=== PATIENT | male | born 1950 | race Caucasian/White ===

== ENCOUNTER 2017-03-06 08:38 | Day surgery (SDC) | payer OTHER ==
[~2017-03-06] VITALS: Ht 172.7 cm; Wt 91.2 kg
[~2017-03-06 08:38] MED LIST: AMLODIPINE BESYL5 MG PO; ATENOLOL50 MG PO; HYDROCODON-ACE1 EA10 PO; JANUVIA100 MG PO; LANTUS100 UNITS/ SUB-Q; LEVOTHYROXINE112 MCG PO; LISINOPRIL40 MG PO; METFORMIN HCL750 MG PO
[2017-03-06] MEDS ORDERED: JARDIANCE10 MG PO (08:57)
--- NOTE | 2017-03-06 10:27 | NUR ---
[facility]17 [facility] T[facility]. PT DENIES ANY PROBLEMS.
--- NOTE | 2017-03-06 16:04 | OR ---
[facility] [address] [place], [place] [address] Signed DATE OF PROCEDURE: 03/06/17 PREOPERATIVE DIAGNOSES Internal hemorrhoids (2010). Rectal bleeding. POSTOPERATIVE DIAGNOSES Moderate circumferential internal hemorrhoids. Minimal sigmoid diverticulosis. PROCEDURE: Colonoscopy without biopsy. ESTIMATED BLOOD LOSS: None. INDICATIONS Kobe is a 66-year-old gentleman who came in 2010 for screening colonoscopy. At that time, he had internal hemorrhoids. More recently, he has had quite a bit of rectal bleeding he said he notices in the toilet on the stool and his toilet paper. He said he is not sure why. He said he has not changed any of his medications or his diet. There is no family history of colon cancer or polyps. Consequently, his primary care provider asked him to see me for repeat colonoscopy. I gave Kobe a pamphlet on colonoscopy in the office and we reviewed that together. He understands there is risk including but not limited to gas bloating, crampy abdominal pain, bleeding perforation requiring surgery, and missed diagnosis. He also understands the need for IV conscious sedation. He had expressed understanding and wished to proceed. PROCEDURE IN DETAIL Kobe was taken into our endoscopy suite and placed in the left lateral decubitus position. He was given IV sedation with 8 mg of Versed and 175 mcg of Fentanyl. A digital rectal exam was performed and this was unremarkable. The adult colonoscope was introduced and advanced all around to the cecum under direct visualization of the camera without difficulty. The scope was slowly withdrawn. His prep was average. He had a couple areas of liquid stool that I could not quite irrigate and suctioned out completely. We saw just a few diverticula in the sigmoid colon. They were moderate in size, minimal in number, and scattered about. The rectum was unremarkable. Upon retroflexion of the scope, he does have a circumferential area of internal hemorrhoid tissue, currently not bleeding or irritated that I can see. After this, the gas was suctioned out and the colonoscope removed. Kobe tolerated the procedure quite well. RECOMMENDATIONS I can see Kobe back in my office in 10 years for repeat colonoscopy. If the rectal bleeding remains an issue, he can come back to the office sooner and we can look at that Electronically Signed By: QAMAR VELÁZQUEZ MD 03/06/17 1604 PATIENT NAME: EARL MAGALLANES OPERATIVE REPORT DATE OF : 54 PHYSICIAN: QAMAR VELÁZQUEZ MD REPORT #: [id number] REPORT IS CONFIDENTIAL AND NOT TO BE RELEASED WITHOUT AUTHORIZATION [facility] [address] [place] [id number] Signed together with respect to the internal hemorrhoids. Given his circumferential nature of hemorrhoids, he would be a better candidate for PPH stapler rather than banding. MD SINDY Pierce/Modl /[id number] cc: Danilo Pritchett MD Electronically Signed By: QAMAR VELÁZQUEZ MD 03/06/17 1604 PATIENT NAME: EARL MAGALLANES OPERATIVE REPORT DATE OF : 54 PHYSICIAN: QAMAR VELÁZQUEZ MD REPORT #: [id number] REPORT IS CONFIDENTIAL AND NOT TO BE RELEASED WITHOUT AUTHORIZATION
== END 2017-03-06 10:53 | disposition home or self-care (01) ==
LOC: OPS 08:38 → DS 08:38 → OPS 09:45
PROVIDERS: Colon & Rectal Surgery
PROC: 0DJD8ZZ Inspection of Lower Intestinal Tract, Via Natural or Artificial Opening Endoscopic (ICD-10-PCS; principal; 2017-03-06 09:45)
DX: K64.8 Other hemorrhoids (principal); K57.30 Diverticulosis of large intestine without perforation or abscess without bleeding; I10 Essential (primary) hypertension; E78.5 Hyperlipidemia, unspecified; E03.9 Hypothyroidism, unspecified; E11.9 Type 2 diabetes mellitus without complications; F17.210 Nicotine dependence, cigarettes, uncomplicated; Z98.890 Other specified postprocedural states; Z88.5 Allergy status to narcotic agent; Z88.8 Allergy status to other drugs, medicaments and biological substances
CPT/HCPCS: 99152; 99153; J2250; J3010; J7120

== ENCOUNTER 2020-08-11 17:45 | Emergency (ER) | payer MEDICARE, OTHER ==
[~2020-08-11] VITALS: Ht 172.7 cm; Wt 79.4 kg
[~2020-08-11 17:45] MED LIST changes: +JARDIANCE10 MG PO
--- OUTSIDE RECORDS SUMMARY | 2020-08-11 17:48 | XMS ---
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 Stuart has no Care Guidelines for this patient. Vinnie VISIT COUNT (12 MO.) 1 KAIA Reinoso TOTAL 1 NOTE: Visits indicate total known visits. ED/UCC VISIT TRACKING (12 MO.) 08/11/2020 17:45 KAIA Tinsley OR TYPE: Emergency COMPLAINT: - BLOOD IN URINE INPATIENT VISIT TRACKING (12 MO.) No inpatient visits to display in this time frame [email or web address]
[2020-08-11] MEDS ORDERED: LOSARTAN POTASS50 MG PO (18:11)
[2020-08-11] MEDS ORDERED: TRIAMTERENE-HC1 EAC1 PO (18:11)
[2020-08-11] MEDS ORDERED: ASPIRIN325 MG PO (18:12)
[2020-08-11] MEDS ORDERED: MULTI-VITAMIN1 EACH PO (18:12)
[2020-08-11] MEDS ORDERED: FISH OIL 1,4001 EACH PO (18:13)
[2020-08-11] MEDS ORDERED: VITAMIN C1000 MG PO (18:13)
[2020-08-11] MEDS ORDERED: TRULICITY1.5 MG/0.5 SUB-Q (18:14)
== END 2020-08-11 21:54 | disposition home or self-care (01) ==
LOC: ED 17:45
PROC: 4A0D7LZ Measurement of Urinary Volume, Via Natural or Artificial Opening (ICD-10-PCS; principal; 2020-08-11)
DX: R31.0 Gross hematuria (principal); E11.9 Type 2 diabetes mellitus without complications; I10 Essential (primary) hypertension; E78.00 Pure hypercholesterolemia, unspecified; Z87.891 Personal history of nicotine dependence; Z88.8 Allergy status to other drugs, medicaments and biological substances; Z88.5 Allergy status to narcotic agent; Z79.899 Other long term (current) drug therapy; Z79.84 Long term (current) use of oral hypoglycemic drugs; Z79.82 Long term (current) use of aspirin
CPT/HCPCS: 51798; 74177; 80048; 81001; 85025; 85610; 85730; 99284-25

== ENCOUNTER 2021-05-03 08:07 | Day surgery (SDC) | payer MEDICARE, OTHER ==
[~2021-05-03] VITALS: Ht 167.6 cm; Wt 78.9 kg
[~2021-05-03 08:07] MED LIST changes: +ASPIRIN325 MG PO; +FISH OIL 1,4001 EACH PO; +FLOMAX0.4 MG PO; +LOSARTAN POTASS50 MG PO; +MAPAP500 MG PO; +MULTI-VITAMIN1 EACH PO; +OZEMPIC0.25 MG/0. SQ; +RAPAFLO8 MG PO; +TRIAMTERENE-HC1 EAC1 PO; +TRULICITY1.5 MG/0.5 SUB-Q; +VITAMIN C1000 MG PO
[2021-05-03] MEDS ORDERED: METFORMIN HCL1000 M1 PO (09:00)
[2021-05-03] MEDS ORDERED: LEVOTHYROXINE125 MC1 PO (09:04)
[2021-05-03] MEDS ORDERED: OZEMPIC0.25 MG/0. SUB-Q (09:06)
[2021-05-03] MEDS ORDERED: OZEMPIC1 MG/0.71 SUB-Q (09:07)
--- NOTE | 2021-05-03 10:48 | NUR ---
05/03/21 1048 Sheets,Lindsey 1040 PT ARRIVED TO PACU AWAKE AND TALKING TO RN. VSS. PT DENIES PAIN AND NAUSEA. 1046 PT SIPPING WATER PER REQUEST.
--- NOTE | 2021-05-03 13:37 | EKG ---
[facility] [address] [facility] [place], [place] [address] Signed Sinus rhythm with 1st degree AV block Right bundle branch block Abnormal ECG No previous ECGs available Confirmed by COLTON DUKE MD ([id number]) on 05/03/2021 1:37:37 PM Electronically Signed By: COLTON DUEK MD 05/03/21 1337 PATIENT NAME: EARL MAGALLANES Electrocardiogram DATE OF : 54 PHYSICIAN: COLTON DUKE MD REPORT #: [id number] REPORT IS CONFIDENTIAL AND NOT TO BE RELEASED WITHOUT AUTHORIZATION
--- NOTE | 2021-05-04 07:09 | OR ---
[facility] [address] [place], [place] [address] Signed DATE OF OPERATION: 05/03/2021 SURGEON: Qamar Velázquez MD PREOPERATIVE DIAGNOSES: 1. Mid esophageal dysphagia. 2. Esophageal dysmotility. 3. Small hiatal hernia. POSTOPERATIVE DIAGNOSES: 1. Mild diffuse gastroduodenitis. 2. Small hiatal hernia (less than or equal to 2 cm). 3. Gastroesophageal junction at 37 cm. PROCEDURE: Esophagogastroduodenoscopy with CLOtest and biopsies of the bulb antrum and gastroesophageal junction. ESTIMATED BLOOD LOSS: None. INDICATIONS: Kobe is a 70-year-old diabetic gentleman, asked to see me regarding his midesophageal dysphagia. He said he has had it for years. It has been getting worse. He said now solid foods are becoming stuck about twice a week. He said even occasionally it is painful to drink fluids. He points several inches below his sternal notch in the area of the midsternum. He also describes drainage from his right middle ear. He has tried various nasal sprays and so forth and nothing seemed to really help. He is hoping to go see one of the Ear, Nose, and Throat specialist. He does not seem to describe any acid reflux. He does not take anything for acid reflux. We did send him for a barium swallow and he does have esophageal dysmotility and what appears to be a small sliding hiatal hernia. He presents today for his upper endoscopy. In the office, I gave him a pamphlet on upper endoscopy and we had reviewed that together in detail. He understands there is risk including, but not limited to gas bloating, crampy abdominal pain, bleeding, perforation requiring surgery, and missed diagnosis. He also understands the need for IV sedation. Given his multiple drug allergies along with the possible need for dilation, we had scheduled him with monitored anesthesia care. That worked out very nicely for Kobe today. He had expressed understanding and wished to proceed. PROCEDURE NOTE: Electronically Signed By: QAMAR VELÁZQUEZ MD 05/04/21 0709 PATIENT NAME: EARL MAGALLANES OPERATIVE REPORT DATE OF : 54 REPORT #: [id number] PHYSICIAN: QAMAR VELÁZQUEZ MD PCP: SYLVESTER LORENZANA PA-C REPORT IS CONFIDENTIAL AND NOT TO BE RELEASED WITHOUT AUTHORIZATION [facility] [address] [place] [id number] Signed Kobe was taken into our endoscopy suite and placed in a supine semi-recumbent position. The posterior oropharynx was anesthetized with lidocaine spray. A bite block was utilized for the case. He was given monitored anesthesia care per our nurse education specialist to include propofol. The adult gastroscope was introduced and advanced under direct visualization out into the third portion of the duodenum. The duodenum was unremarkable. The pyloric channel in the stomach showed mild diffuse erythematous changes. We therefore took a biopsy from the pyloric channel as well as the antrum for pathologic review. We also took a biopsy of the antrum for CLOtest. He had a few areas of punctate hemorrhage in the stomach. No ulcerations. Upon retroflexion of scope, it is hard to really see a true hiatal hernia. The scope was withdrawn up through the area of the GE junction, which seems to be compliant without stricture. He does have a little irritation around his Z-line. If he has a hiatal hernia, it is quite small less than 2 cm. He probably has a very short lower esophageal sphincter more than anything else. No Gordon's mucosa. We went and took a biopsy along the edge of the Z-line. The Z-line is 37 cm from the incisors. His distal middle and upper esophagus were unremarkable. Specifically, no evidence of any strictures with the gastroscope. After this, the scope had been withdrawn and the gas suctioned out. His vocal cords and arytenoids were unremarkable. Kobe tolerated his procedure quite well. RECOMMENDATIONS: I will see Kobe back in my office in 7 to 14 days to review his results. He may need 24-hour pH testing and esophageal manometry to better delineate his dysmotility. He might also consider using an H2 casa or proton-pump inhibitor to see if that will improve his dysmotility. He also wants to see an Ear, Nose, and Throat surgeon for his right middle ear drainage. Qamar Velázquez MD ALB/MODL /[id number] cc: Sylvester Velázquez MD Electronically Signed By: QAMAR VELÁZQUEZ MD 05/04/21 0709 PATIENT NAME: EARL MAGALLANES OPERATIVE REPORT DATE OF : 54 REPORT #: [id number] PHYSICIAN: QAMAR VELÁZQUEZ MD PCP: SYLVESTER LORENZANA PA-C REPORT IS CONFIDENTIAL AND NOT TO BE RELEASED WITHOUT AUTHORIZATION [facility] [address] [place], [place] [address] Signed Copies: QAMAR VELÁZQUEZ MD ~ Electronically Signed By: QAMAR VELÁZQUEZ MD 05/04/21 0709 PATIENT NAME: EARL MAGALLANES OPERATIVE REPORT DATE OF : 54 REPORT #: [id number] PHYSICIAN: QAMAR VELÁZQUEZ MD PCP: SYLVESTER LORENZANA PA-C REPORT IS CONFIDENTIAL AND NOT TO BE RELEASED WITHOUT AUTHORIZATION
== END 2021-05-03 11:09 | disposition home or self-care (01) ==
LOC: OPS 08:07 → DS 08:15 → OPS 08:15
PROVIDERS: ATTEND Colon & Rectal Surgery
PROC: 0DB78ZX Excision of Stomach, Pylorus, Via Natural or Artificial Opening Endoscopic, Diagnostic (ICD-10-PCS; 2021-05-03)
PROC: 0DB48ZX Excision of Esophagogastric Junction, Via Natural or Artificial Opening Endoscopic, Diagnostic (ICD-10-PCS; principal; 2021-05-03 09:45)
DX: K29.90 Gastroduodenitis, unspecified, without bleeding (principal); K44.9 Diaphragmatic hernia without obstruction or gangrene; K22.4 Dyskinesia of esophagus; E11.9 Type 2 diabetes mellitus without complications; I10 Essential (primary) hypertension; N40.0 Benign prostatic hyperplasia without lower urinary tract symptoms; E03.9 Hypothyroidism, unspecified; Z88.8 Allergy status to other drugs, medicaments and biological substances; Z87.891 Personal history of nicotine dependence; Z88.5 Allergy status to narcotic agent; Z79.4 Long term (current) use of insulin
CPT/HCPCS: 80053; 83009; 85025; 88305; 93005; 93010; J2001; J2704; J7121

== ENCOUNTER 2023-06-18 05:50 | Day surgery (SDC) | payer OTHER ==
[2023-06-13 09:43] VITALS: BP 137/76
[~2023-06-18] VITALS: Ht 167.6 cm; Wt 79.5 kg
[~2023-06-18 05:50] MED LIST changes: +ADULT ASPIRIN R81 MG PO; -AMLODIPINE BESYL5 MG PO; +FISH OIL 1,4001 EAC1 PO; -FISH OIL 1,4001 EACH PO; +LEVOTHYROXINE125 MCG PO; +METFORMIN HCL1000 M1 PO; +NORVASC10 MG PO; +OZEMPIC0.25 MG/0. SUB-Q; +OZEMPIC1 MG/0.71 SUB-Q; +OZEMPIC2 MG/0.75 SUB-Q
[2023-06-18 06:01] VITALS: BP 133/63
--- NOTE | 2023-06-18 07:53 | NUR ---
ROUNDS. PT GONE FOR PROCEDURE. PROVIDED PRAYER.
[2023-06-18 10:33] VITALS: BP 111/60
--- NOTE | 2023-06-18 10:38 | NUR ---
PT TO ROOM FROM PACU REPORT RECEIVED. PT ALERT AND INTERACTIVE DRINKING H20 PRESENT IN THE ROOM. PT DENIES DISCOMFORTS. CBI RUNNING CLEAR LIGHT YELLOW. PT ORIENTED TO ROOM CALL LIGHT AND NEEDED ITEMS IN REACH
--- NOTE | 2023-06-18 10:54 | NUR ---
06/18/23 1054 Alicia Burrows 0971- PT ARRIVES TO PACU, SEMI NICHOLAS POSITION, ALERT AND ANSWERING QUESTIONS. DENIES PAIN OR NAUSEA. REPORTS FEELING GROGGY LIKE A "HANG OVER". LR INFUSING TO RW IV. CBI RUNNING TO CATHETER WITH CLEAR OUTPUT WITH SMALL AMOUNTS OF SMALL STRINGY BLOOD CLOTS. CBI BAGS MARKED AND YANG CATHETER DRAINED. NO BLOOD NOTED AT THE MEATUS. ABD SOFT, NON DISTENDED. ALL MONITORS IN PLACE. 1010- NO CHANGE IN PT STATUS AND NO COMPLAINTS. CBI CONTINUES AT A SLOW RATE, WITH CLEAR OUTPUT. WILL PREPARE PT FOR ADMISSION TO MED/SURG. 1025- PT TAKEN TO MED/SURG ROOM 113, LR HANGING TO RW IV, CBI CONTINUES. NO BLOOD AT THE MEATUS. REPORT TO TANNA RN AT BEDSIDE, AT BEDSIDE. WILL OBTAIN BELONGINGS FROM DAY SURGERY AND BRING TO PT ROOM. NO SIGNS OF DISTRESS. CARE OF PT TURNED OVER AT THIS TIME.
--- NOTE | 2023-06-18 11:34 | NUR ---
PT AGREES LEGS ARE BACK TO NORMAL FEEL "ALMOST" PAIN CONTROL DISCUSSED PT STATES HE BELIEVES IN STAYING AHEAD RATHER THAN CATCHING UP CHOOSES TO HAVE PERCOCET WITH A SNACK WHILE WAITING FOR NOON MEAL. PT CONTINUES AWAKE, WATCHING TV DRINKING H20. DENIES DISCOMFORT OR NEED. YANG BAG LIGHT PINK CBI CONTINUES.
--- NOTE | 2023-06-18 12:22 | NUR ---
CBI DRAINING PINK COLORED FLUID. PT WATCHING TV AGREES HE IS COMFORTABLE LUNCH SERVED, FRESH H20 TO BEDISDE CALL LIGHT IN REACH
--- NOTE | 2023-06-18 12:43 | NUR ---
PT EATING NOON MEAL DENIES PAIN OR DISCOMFORT. PT PRESENT IN THE ROOM.
[2023-06-18 13:33] VITALS: BP 121/62
--- NOTE | 2023-06-18 15:01 | NUR ---
PT RESTING IN BED DENIES DISCOMFORTS. CBI CLAMPED AT THIS TIME. PT DENIES NEEDS OF
--- NOTE | 2023-06-18 15:55 | NUR ---
YANG DRAINAGE STRONGER PINK, CBI TURNED ON TO FLUSH UNTIL CLEAR LEFT AT A SLOW DRIP CURRENTLY. PT C/O "THINGS STARTING TO WAKE UP A BIT AND IT STINGS" PERCOCET ADMINISTERED. FRESH H20 PROVIDED NEEDED ITEMS IN REACH
--- NOTE | 2023-06-18 17:14 | NUR ---
CATH CARE DEMONSTRATED FOR PT, AND FURTHER CARE OF YANG CATH DISCUSSED. ALL QUESTIONS ANSWERED. LEG BAG AND NEEDED SUPPLIES BROUGHT TO ROOM ANTICIPATING DC TOMORROW. PT IS PRESENT IN THE ROOM. PT WATCHING TV AGREES HE IS READY FOR EVENING MEAL. STATES HE HAS SOME "BURNING" BUT DESCRIBES IT BAREABLE. DENIES NEEDS AT THIS TIME.
--- NOTE | 2023-06-18 18:25 | OR ---
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 NAMES OF PROCEDURES: 1. Transurethral resection of prostate. 2. Complicated placement of 24-Guyanese three-way Laureano catheter, requiring intraoperative ultrasound. ANESTHESIA: Spinal anesthesia. SPECIMENS: Prostate chips sent to the lab for pathologic evaluation. DRAINS: A 24-Guyanese three-way Laureano catheter, connected to continuous bladder irrigation. COMPLICATIONS: A false passage was created within the prostatic urethra during final placement of the three-way Laureano catheter. The catheter was initially placed over a wire, however it undermined the bladder at the 6 o'clock position. This required multiple attempts at placing the catheter back in the proper position. Ultimately, ultrasound was requested and I was able to pass 24-Guyanese three-way Laureano catheter over a Sensor wire under ultrasound guidance. INDICATIONS FOR PROCEDURE: Mr. Everett is a very pleasant 73-year-old gentleman, who presented to me earlier this year with classic lower urinary tract symptoms. He had been given a trial of Flomax, however, he could not tolerate the medication. He subsequently underwent diagnostic cystoscopy, which revealed severe trilobar BPH that I felt would not be amenable to the UroLift procedure. After discussion of the risks and benefits of the procedure, the patient elected to undergo transurethral resection of the prostate for definitive management of his lower urinary tract symptoms. Electronically Signed By: MELLISA POLK MD 06/18/23 1825 PATIENT NAME: EARL EVERETT OPERATIVE REPORT DATE OF : 54 REPORT #: [id number] PHYSICIAN: MELLISA POLK MD PCP: SYLVESTER LORENZANA PA-C REPORT IS CONFIDENTIAL AND NOT TO BE RELEASED WITHOUT AUTHORIZATION [facility] [address] [place], [place] [address] Signed OPERATIVE FINDINGS: 1. On cystoscopy, there was no evidence of any suspicious masses, lesions, or stones. Bilateral ureteral orifices are in their normal anatomic location and effluxing clear urine. 2. Digital rectal examination was performed, which reveals a 45 g prostate that is soft, smooth and symmetric with no focal nodules. 3. The patient's prostate was resected transurethrally using a 24-Guyanese bipolar loop. I was able to excise the large median lobe of the prostate down to the level of the bladder neck. I was a bit aggressive in this area, so I believe it did weaken the inferior aspect of the bladder neck. This may have increased his risk of developing a false passage during placement of the laureano catheter. DESCRIPTION OF PROCEDURE: After informed consent was obtained, the patient was taken back to the OR where he was transferred from the [facility] to the OR table. He was given spinal anesthesia, and then placed in the dorsal lithotomy position. His genitalia were then prepped and draped in the standard sterile fashion. His fossa navicularis was dilated from 18 Fr to 26 Fr without difficulty. Sterile lubrication was then injected into his urethra for prevention of urethral stricture. A 26 Guyanese sheath was passed into the bladder using a visual obturator. This was then switched out for the resectoscope. I began my resection of the large median lobe of the prostate using a 24 Fr bipolar loop. I evaluated the ureteral orifices at this time, and they were noted to be fairly far aware from the bladder neck. I then resected the left and right lateral lobes of the prostate transurethrally down to the level of the verumontanum. Overall, the resection was performed without any complication or difficulty. The patient's bladder was irrigated of multiple prostate chips using a Luis syringe. I went back in and cauterized some residual areas of resection to achieve and maintain hemostasis. I removed the resectoscope, leaving the sheath behind. I passed a 0.035 Sensor wire through the sheath and into the patient's bladder. I attempted to pass a 26-Guyanese three-way Laureano catheter over the wire and into the patient's bladder. I attempted to irrigate the catheter, however, it did not irrigate properly. I realized that the catheter had undermined the bladder neck and had created a false passage. I removed the 26-Guyanese catheter and then tried to place a 24-Guyanese catheter again over a Sensor wire. However, again the catheter ended up in the false passage. I contacted the ultrasound department intraoperatively and they came and I performed an ultrasound of the patient's bladder and was able to confirm that the catheter again was present in a false passage undermining the bladder. I removed the catheter again and performed another cystoscopy and again placed a Sensor wire in the patient's bladder. This was confirmed on ultrasound. I again passed a 24-Guyanese catheter over the Sensor wire and Electronically Signed By: MELLISA POLK MD 06/18/23 4858 PATIENT NAME: EARL EVERETT OPERATIVE REPORT DATE OF : 54 REPORT #: [id number] PHYSICIAN: MELLISA POLK MD PCP: SYLVESTER LORENZANA PA-C REPORT IS CONFIDENTIAL AND NOT TO BE RELEASED WITHOUT AUTHORIZATION [facility] [address] [place], [place] [address] Signed into the patient's bladder. At this time, placing a good deal of pressure on the perineum to force the catheter to go into the bladder. This was successful. Once I confirmed via ultrasound that the catheter was in the proper position, I placed 35 mL of water into the patient's catheter balloon. The catheter was then mainly irrigated multiple times to assure placement and to potentially irrigate any other additional chips from the patient's bladder residual chips from the patient's bladder. The catheter was then connected to continuous bladder irrigation. A digital rectal examination was then performed, please see the above findings. The patient tolerated the procedure well \E\ without any complication. He will now be transferred to the postanesthesia care unit in stable condition. DISPOSITION: I discussed the details of today's procedure with the patient's and answered all of her questions. I made her aware that the patient did sustain a false passage at the 6 o'clock position in the patient's bulbar urethra. She was made aware of this. The only difference in postoperative care was that it will be that the patient will need to keep the catheter for one week and his voiding trial will take place next Sunday, 26 of June. The patient will be going home today with Levaquin 500 mg one tablet p.o. daily for seven days, and he will also be given oxycodone 5 mg one tablet p.o. q.6 hours p.r.n. pain, dispense #20. He will be scheduled to return to clinic to see me in approximately 5 to 6 weeks with a PVR for his postoperative evaluation. MD NICKOLAS Santana/AMBER /[id number] Copies: ~ Electronically Signed By: MELLISA POLK MD 06/18/23 1825 PATIENT NAME: EARL EVERETT OPERATIVE REPORT DATE OF : 54 REPORT #: [id number] PHYSICIAN: MELLISA POLK MD PCP: SYLVESTER LORENZANA PA-C REPORT IS CONFIDENTIAL AND NOT TO BE RELEASED WITHOUT AUTHORIZATION
[2023-06-18 18:29] VITALS: BP 131/68
--- NOTE | 2023-06-18 19:10 | NUR ---
BEDSIDE REPORT RECEIVED PER SHAHEED RN, PT ALERT, PLAN OF CARE DISCUSSED WITH PT, PT WOULD LIKE TO TAKE PAIN MEDICATION APPROX 1999, IRRIGATION OF BLADDER IN PROGRESS, URINE LIGHT RED IN COLOR, IV INFUSING WELL.
[2023-06-18 20:08] VITALS: BP 129/62
--- NOTE | 2023-06-18 20:08 | NUR ---
PT AWAKE AND ALERT, VS DONE AND STABLE, ACCUCHECK 222, PT MEDICATED WITH PERCOCET FOR BURNING DISCOMFORT AROUND PENIS, CBI CONTINUES, YANG OUTPUT CONTINUES LIGHT RED WITHOUT NOTED CLOTS, ASSESSMENT CONTINUES, IV PATENT IN RIGHT FOREARM, LR CONTS AT 75ML/HR, PT DISCUSSING HIS ROUNTINE HS MEDS, PT STATES HE NORMALLY TAKES 5MG OF AMLODIPINE NOT 10MG AT HS, ALSO STATES HE ALWAYS TAKES HIS METFORMIN AT NIGHT, PLAN TO CALL DR POLK TO CLARIFY.
--- NOTE | 2023-06-18 20:35 | NUR ---
TC TO DR POLK TO CLARIFY AMLODIPINE DOSE AND IF METFORMIN NEEDED THIS EVENING, ORDERS RECEIVED PT TO HAVE 5MG AMLODIPINE BID AND NO METFORMIN TONIGHT ONLY SS INSULIN, UPDATE GIVEN ON CBI AND YANG DRAINAGE COLOR, NO ADDITIONAL ORDERS RECEIVED.
--- NOTE | 2023-06-18 20:45 | NUR ---
PT MEDICATED WITH AMLODIPINE 5MG AND UPDATED ON METFORMIN, SS INSULIN 3 UNITS GIVEN PER ORDER. CATH CARE COMPLETED PER RN, NO BLEEDING NOTED AROUND PENIS.
--- NOTE | 2023-06-18 22:20 | NUR ---
RT TO ROOM TO CHECK PT'S OWN CPAP MACHINE, CPAP ON PER PT.
--- NOTE | 2023-06-18 23:30 | NUR ---
RN CALLED TO ROOM TO HAVE A NOISE CHECKED IN ROOM THAT IS ANNOYING HIM, FOUND TO BE IV PUMP, BLANKET OVER PUMP AND EAR PLUGS GIVEN TO PT, YANG OUTPUT 750ML AFTER IRRIGATION FLUID SUBTRACTED, YANG DRAINAGE LIGHT PINK, CBI CONTS, PT REQUESTS A PERCOCET AT APPROX 2400.
[2023-06-19 00:02] VITALS: BP 127/59
--- NOTE | 2023-06-19 00:02 | NUR ---
PT AWAKE WHEN RN ENTERED ROOM, CPAP REMOVED FOR VS AND ADMINISTRATION OF PERCOCET, PT REQUEST MED FOR BURNING AROUND PENIS, VS STABLE, AFEBRILE, IV INFUSING WELL.
--- NOTE | 2023-06-19 02:05 | NUR ---
PT AWAKEN NURSE ENTERS ROOM, WITHOUT REQUESTS, CBI CONTS, NEW BAG OF IRRIGATION (NS) HUNG, YANG OUT PUT LIGHT RED. IVF WELL.
[2023-06-19 04:25] VITALS: BP 129/67
--- NOTE | 2023-06-19 04:25 | NUR ---
PT AWAKE AND ALERT, WATCHING TV, CPAP OFF, PT STATES HE WAS ABLE TO SLEEP OFF AND ON, YANG DRAINING LIGHT RED URINE, CBI STOPPED AND CLAMPED, URINE OUTPUT MINUS CBI IS 550ML LAST FOUR HOURS, PT REQUESTING PERCOCET FOR "ACHY" NEAR PENIS OFF AND ON, MEDICATED PER ORDER, FRESH WATER GIVEN.
--- NOTE | 2023-06-19 06:54 | NUR ---
DISCUSSED WITH DIETARY AND PT COMPLAINT ABOUT NOT GETTING THE DINNER HE ORDERED. WAS ABLE TO RESOLVE AT THIS TIME. PT HAS ORDERED BREAKFAST.
--- NOTE | 2023-06-19 08:09 | NUR ---
Verbal order obtained from Dr. Pierce to admin steroid cream BID as needed to tip of penis for pain.
[2023-06-19 09:20] VITALS: BP 134/55
[2023-06-19] MEDS ORDERED: JARDIANCE25 MG PO (09:35)
[2023-06-19] MEDS ORDERED: LEVOFLOXACIN500 MG PO (09:39)
[2023-06-19] MEDS ORDERED: OXYCODONE HCL5 MG PO (09:39)
--- NOTE | 2023-06-19 10:01 | NUR ---
PATIENT UP TO RESTROOM FOR BOWEL MOVEMENT. PATIENT REFUSED A BED JOHNSON/COMMODE-HE INSISTED ON GETTING OUT OF BED TO RESTROOM. HE WAS ASSISTED TO TOILET AND BACK TO BED. CBI IS STOPPED, URINE IN YANG BAG IS LIGHT RED COLOR, NO CLOTS. PATIENT REPORTS PAIN TO TIP OF PENIS, STEROID CREAM PROVIDED TO PATIENT FOR USE. PATIENT LIKLEY TO DISCAHRGE THIS AFTERNOON, PER PROVIDER REPORT. PT UP TO DATE WITH PLAN OF CARE, HE REPORTS HE IS LOOKING FORWARD TO DISCHARGE.
--- NOTE | 2023-06-19 10:02 | NUR ---
MED REC COMPLETE
[2023-06-19] MEDS ORDERED: TERAZOSIN HCL2 MG PO (10:26)
--- NOTE | 2023-06-19 10:51 | NUR ---
Kobe is in bed watching TV when I arrive. He answers questions appropriately and is oriented to person, place and time. His is also in the room. They both feel comfortable with the discharge plan to home. They both also feel that they can provide all of their own self care needs including shopping, laundry, meal prep, etc. Kobe denies any dificulty with being able to obtain food, pay for utilities, obtain medication, etc. No questions or concerns at this time.
--- NOTE | 2023-06-19 11:19 | NUR ---
FINANCIAL COMPLIANCE EXAMINER entered room to give pt catheter care wipes. Educated pt on how to clean catheter using these wipes and the importance of using them. Pt stated he would do it on his own. Denies any assistance at this time. Call light within reach.
[2023-06-19 11:49] VITALS: BP 148/67
--- NOTE | 2023-06-19 11:53 | NUR ---
Updated Dr. Pierce regarding patient status. Patient requesting to discharge home. Urine continues to appear light dov colored, no clots. TORB from Dr. Pierce that patient is ok to discharge home once CBI is disconnected to gravity with stopper placed to irrigation port.
--- NOTE | 2023-06-25 09:20 | PATH ---
[facility] [address] [place], [place] [address] Signed SPECIMEN(S): A PROSTATE CHIPS SPECIMEN SOURCE: A. PROSTATE CHIPS CLINICAL HISTORY: TURP. BPH with LUTS. FINAL PATHOLOGIC DIAGNOSIS: Prostate chips, TUR: - Prostatic adenocarcinoma, Ratcliff score 3+3=6/10. - Percentage of prostatic tissue involved by tumor: Less than 1%. - Tumor involves 1 of greater than 100 chips. - Perineural invasion: Not identified. COMMENT: As part of [employer] Quality Improvement Program, this case was reviewed by another member of our pathology staff. Diagnostic notification to the office of Dr. Pierce is initiated by Dr. Rivas and will be recorded separately. JVR:PERCYS:juanito MICROSCOPIC EXAMINATION: Histologic sections of all submitted blocks are examined by light microscopy. These findings, together with the gross examination, support the pathologic diagnosis. Immunohistochemical staining, with appropriately reactive controls, for p63, high molecular weight cytokeratin, and AMACR (TriCAP--prostate cocktail multiplex stain) was performed on blocks A4 and A9. There is at least partial basal marker (p63, HMWK) expression and only odgjsnya-di-pmqa AMACR expression in the focus/foci of interest. This constellation of findings is indicative of a benign process, such as partial atrophy, and argues against the possibility of prostatic adenocarcinoma. JVR:sj Immunohistochemical staining, with appropriately reactive controls, for p63, high molecular weight cytokeratin, and AMACR (TriCAP--prostate cocktail multiplex stain) was performed on block A6. There is a complete absence of basal marker (p63, HMWK) expression combined with cytoplasmic AMACR expression in the focus/foci of interest. These results PATIENT NAME: EARL MAGALLANES PATHOLOGY DATE OF : 54 REPORT #: [id number] PHYSICIAN: YARED NEELY PCP: SYLVESTER LORENZANA PA-C REPORT IS CONFIDENTIAL AND NOT TO BE RELEASED WITHOUT AUTHORIZATION [facility] [address] [place], [place] [address] Signed support the diagnosis of prostatic adenocarcinoma. JVR:juanito GROSS DESCRIPTION: The specimen, labeled and designated "King prostate chips," is received in formalin and consists of pink-leal, rubbery tissue fragments mixed with coagulated blood that aggregately measure 6.0 x 4.6 x 1.4 cm. The specimen weight is 16 g. Prostate tissue is from the coagulated blood and entirely submitted in (A1-A9). JS (under the direct supervision of a pathologist) The Gross Description was prepared using a voice recognition system. The report was reviewed for accuracy; however, sound-alike word errors, addition and/or deletions may occur. If there is any question about this report, please contact Client Services. ADDITIONAL NOTES: Immunohistochemical and/or in situ hybridization studies if performed in this case included appropriate positive controls that reacted as expected. This test was developed and its performance characteristics determined by [employer]. It has not been cleared or approved by the U.S. Food and Drug Administration. The FDA has determined that such clearance or approval is not necessary. This test is used for clinical purposes. It should not be regarded as investigational or for research. [employer] is certified under the Clinical Laboratory Improvement Amendments of 1988 (CLIA) as qualified to perform high complexity clinical laboratory testing. PERFORMING LABORATORY: Technical component was performed by [employer], [address] [place] [id number] (CLIA# [id number]). Professional interpretation was performed by [facility], [address] [place], [place] [address]e., [place] [address] (CLIA#: [id number]). Diagnostician: Alexandre Rivas MD Pathologist Electronically Signed 06/25/2023 Copies: PATIENT NAME: EARL MAGALLANES PATHOLOGY DATE OF : 54 REPORT #: [id number] PHYSICIAN: YARED PATHOLOGY PCP: SYLVESTER LORENZANA PA-C REPORT IS CONFIDENTIAL AND NOT TO BE RELEASED WITHOUT AUTHORIZATION [facility] [address] [place] [id number] Signed ~ PATIENT NAME: EARL MAGALLANES PATHOLOGY DATE OF : 54 REPORT #: [id number] PHYSICIAN: YARED PATHOLOGY PCP: SYLVESTER LORENZANA PA-C REPORT IS CONFIDENTIAL AND NOT TO BE RELEASED WITHOUT AUTHORIZATION
== END 2023-06-19 12:18 | disposition home or self-care (01) ==
LOC: DS 05:50 → MS 10:25 → DS 06-19 12:18
PROVIDERS: ATTEND Urology
PROC: 0VT08ZZ Resection of Prostate, Via Natural or Artificial Opening Endoscopic (ICD-10-PCS; principal; 2023-06-18 07:30)
DX: C61 Malignant neoplasm of prostate (principal); N40.1 Benign prostatic hyperplasia with lower urinary tract symptoms; Z88.5 Allergy status to narcotic agent; R31.0 Gross hematuria; R93.41 Abnormal radiologic findings on diagnostic imaging of renal pelvis, ureter, or bladder
CPT/HCPCS: 00914; 76775; 88305; 88344; C1769; J0690; J0696; J1100; J1815; J2001; J2250; J2704; J3010; J3490; J7121